=== PATIENT | female | born 1975 ===

== ENCOUNTER 2023-01-26 05:27 | Day surgery (SDC) | payer BC, OTHER ==
[2023-01-22 11:15] VITALS: BMI 26.5
[2023-01-26] MEDS ORDERED: FENTANYL CITRATE/PF 50 MCG/ML VIAL ONE (10:52)
[2023-01-26] MEDS ORDERED: MIDAZOLAM HCL 2 MG/2 ML SINGLE DOSE VIAL ONE (10:52)
[2023-01-26] MEDS ORDERED: HYDROmorphone HCl 2 MG/ML VIAL ONE (10:52)
[2023-01-26] MEDS ORDERED: BUPIVACAINE LIPOSOME/PF (EXPAREL) 266 MG/20 ML VIAL ONE (10:54)
[2023-01-26] MEDS ORDERED: BUPIVACAINE HCL/PF 0.5% (5MG/ML) 10 ML VIAL ONE ×2 (10:54→11:10)
[2023-01-26] MEDS ORDERED: METHYLENE BLUE 50 MG/10 ML AMPUL ONE (11:15)
[2023-01-26] MEDS ORDERED: SUGAMMADEX SODIUM 200 MG/2 ML VIAL ONE (11:17)
[2023-01-26] MEDS ORDERED: ONDANSETRON 4 MG/2 ML VIAL ONE (11:17)
[2023-01-26] MEDS ORDERED: DEXAMETHASONE SOD PHOSPHATE 4 MG/1 ML VIAL ONE (11:17)
[2023-01-26] MEDS ORDERED: KETOROLAC TROMETHAMINE 30 MG/1 ML VIAL ONE (11:17)
[2023-01-26] MEDS ORDERED: ROCURONIUM BROMIDE 50 MG/5 ML SYRINGE ONE ×2 (11:17→12:51)
[2023-01-26] MEDS ORDERED: ceFAZolin SODIUM 1 GM VIAL ONE (11:17)
[2023-01-26] MEDS ORDERED: PROPOFOL 20 ML ONE (11:17)
[2023-01-26] MEDS ORDERED: LIDOCAINE HCL/PF 2% SDV 5ML VIAL ONE (11:17)
[2023-01-26] MEDS ORDERED: ceFAZolin SODIUM 1 GM VIAL IVPB ONE (11:29)
[2023-01-26] MEDS ORDERED: TRANEXAMIC ACID 1000 MG/10 ML VIAL ONE (11:31)
[2023-01-26] MEDS ORDERED: oxyCODONE HCL 5 MG TABLET PO PRN ×4 (11:55→15:10)
[2023-01-26] MEDS ORDERED: ONDANSETRON 4 MG/2 ML VIAL IVPUSH PRN (11:55)
[2023-01-26] MEDS ORDERED: PROMETHAZINE HCL 25 MG/1 ML VIAL IVPB PRN (11:55)
[2023-01-26] MEDS ORDERED: ACETAMINOPHEN 1000 MG/100 ML BAG IVPB PRN (11:56)
[2023-01-26] MEDS ORDERED: LACTATED RINGERS SOLUTION 1,000 ML IV SCH (12:00)
[2023-01-26] MEDS ORDERED: METHYLENE BLUE 1% 10 MG/1 ML VIAL IVPUSH ONE (14:30)
[2023-01-26] MEDS ORDERED: ACETAMINOPHEN 325 MG TABLET (FP) PO PRN (15:10)
[2023-01-26] MEDS ORDERED: DOCUSATE SODIUM 100 MG CAPSULE (FP) PO PRN (15:10)
[2023-01-26] MEDS ORDERED: IBUPROFEN 600 MG TABLET (FP) PO PRN (15:10)
[2023-01-26] MEDS ORDERED: ACETAMINOPHEN INJECTION 100 ML IVPB ONE (15:55)
[2023-01-26 21:41] VITALS: RESP 18
[2023-01-27 06:15] VITALS: TEMP 98.5
[2023-01-27 07:38] LABS: HEMATOCRIT 31.8 % (32.4-45.2); HEMOGLOBIN 10.5 GM/dL (10.7-15.3); MCH 30.1 pg (25.7-33.7); MCHC 32.9 g/dl (32.0-36.0); MEAN CELL VOLUME 91.7 fl (80-96); MEAN PLT VOLUME 8.4 fl (7.5-11.1); PLATELET COUNT 249 10^3/uL (134-434); RBC 3.47 M/mm3 (3.60-5.2); RDW 13.8 % (11.6-15.6)
[2023-01-27 08:14] LABS: CREATININE 0.7 mg/dL (0.55-1.3)
[2023-01-27 09:51] VITALS: BP 114/70; PULSE 72
== END 2023-01-27 13:30 | disposition home or self-care (01) ==
LOC: JASUSAT 05:27 → JASU-SURG 05:27 → J3W 18:19 → JASUSAT 01-27 13:30
PROVIDERS: ATTEND Obstetrics & Gynecology
PROC: 0UT9FZZ Resection of Uterus, Via Natural or Artificial Opening With Percutaneous Endoscopic Assistance (ICD-10-PCS; principal; 2023-01-26 10:00)
DX: N93.9 Abnormal uterine and vaginal bleeding, unspecified (principal); N80.03 Adenomyosis of the uterus; N72 Inflammatory disease of cervix uteri; N88.8 Other specified noninflammatory disorders of cervix uteri
CPT/HCPCS: 36415; 81025; 82565; 85027; 86850; 86900; 86901; 87086; 88307-TC; 94760; Q9968